=== PATIENT | female | born 1965 | race Caucasian/White ===

== ENCOUNTER → 2020-01-20 08:57 | Outpatient (CLI) | payer OTHER, SELFPAY ==
--- NOTE | ~2020-01-20 | MMUS_ITS ---
EXAMINATION: MM diagnostic ilia BI w jet, US breast RT limited HISTORY: Palpable lumps of the upper outer quadrant of the right breast TECHNIQUE: Craniocaudal, mediolateral, and mediolateral oblique 3-D tomosynthesis images of the breas ts were performed and synthetic 2-D images were generated. Spot compression views of the right breast are also obtained. CAD analysis was submitted and interpreted. High resolution limited right breast ultrasound was performed. COMPARISON: No prior mammogram is currently available for comparison BREAST PARENCHYMAL COMPOSITION: The breasts are heterogeneously dense, which may obscure small masses . FINDINGS: MAMMOGRAPHIC FINDINGS: Right breast: There are multiple obscured equal density masses in the upper outer quadrant of the manjit ast the region of the palpable abnormalities. The largest measures 1.9 cm in the posterior third of t he breast at the 12:00 location 5.1 cm deep to the nipple. Left breast: There is no evidence of suspicious mass, calcification, or architectural distortion to suggest malignancy. ULTRASOUND: There are multiple cysts in the upper outer quadrant of the right breast in the region of the palpabl e abnormality. The largest measures 1.9 cm at the 11:00 location 4.5 cm from the nipple and correspon ds to the largest mammographic mass identified. There is a 1.5 x 1.1 cm oval, parallel, hypoechoic ma ss with possible microlobulated border at the 9:00 location 6.5 cm from the nipple with posterior aco ustic enhancement and no internal vascularity at the 9:00 location 6.5 cm from the nipple. IMPRESSION: 1. Suspicious mass at the 9:00 location 6.5 cm from the nipple. 2. Ultrasound-guided biopsy is recommended. BI-RADS category 4, suspicious findings. Reviewed, dictated and finalized at location A. IMPRESSION: 1. Suspicious mass at the 9:00 location 6.5 cm from the nipple. 2. Ultrasound-guided biopsy is recommended. BI-RADS category 4, suspicious findings.
== END ==
PROVIDERS: Visit Provider Family Medicine
DX: N63.10 Unspecified lump in the right breast, unspecified quadrant (principal); R92.8 Other abnormal and inconclusive findings on diagnostic imaging of breast
CPT/HCPCS: 76642; 77062; 77066; G0279

== ENCOUNTER 2023-12-01 16:11 | Emergency (ER) | payer OTHER, SELFPAY ==
--- NOTE | 2023-12-01 16:16 | ED.ARRPALP ---
HPI - Arrhythmia/Palpitations General Chief Complaint: Arrhythmia/Palpitations Stated Complaint: ''listen to my heart Time Seen by Provider: 12/01/23 16:15 Source: patient Mode of arrival: ambulatory Limitations: no limitations History of Present Illness HPI narrative: Kelly is a 58-year-old female patient presenting to the clinic today with complaints of palpitations that she experiences at night time. She reports she also experiences when laying flat for a period of time. states she does snore at nighttime. Patient reports that these palpitations will wake her up and she will jump up and feel as though she can not breathe. States she has had a sleep study in the past and it was normal however that was prior to these episodes. Has been having these episodes for the last several months. States that she has also had a decrease in her ability to exercise-swim, hike, biking, and running as she has normally done before. Feels as though she is under some stress and feels anxious about her medical condition. Has been scheduled for a stress test/echocardiogram as well as a Holter monitor. Her pcp is out of town so she came into the clinic today as she had another episode at 0400 this morning of the palpitation-waking up in sleep not able to catch her breath. Related Data Home Medications Medication Instructions Recorded Confirmed quetiapine 50 mg tablet 25 mg PO HS 12/01/23 12/01/23 PMFSH Comments At the time of my signature, I reviewed and agree with the nursing past medical, surgical, social, and family history. There is no relevant family history pertinent to the patient complaint. Exam Narrative: General: Well-developed, well nourished, in no apparent distress Head: Normocephalic, atraumatic. Cardio: Regular rate and rhythm, s1 and s2 normal, no murmur appreciated. Resp: Clear to auscultation bilaterally, no rhonchi, rales, wheezing or rubs. Extremities: No deformity, no edema, no cyanosis, capillary refill less than 2 seconds, peripheral pulses palpable and strong. Integumentary: [place], warm, and dry, intact without lesion, no rashes. Psych: Anxious and flat mood and affect, unable to maintain eye contact while communicating Course Course Emergency Course: Portions of this record may have been created with voice recognition software. Level of Care: Express Care Visit Vital Signs Vital signs: Vital Signs Temperature 37.0 C 07/07/24 16:39 Pulse Rate 83 12/01/23 16:39 Respiratory Rate 16 12/01/23 16:39 Blood Pressure 103/78 12/01/23 16:39 Pulse Oximetry 98 12/01/23 16:39 Oxygen Delivery Room Air 12/01/23 16:39 Temperature 37.0 C 12/01/23 16:39 Pulse Rate 83 12/01/23 16:39 Respiratory Rate 16 12/01/23 16:39 Blood Pressure 103/78 12/01/23 16:39 Pulse Oximetry 98 12/01/23 16:39 Oxygen Delivery Room Air 12/01/23 16:39 Vital signs reviewed MDM - Arrhythmia/Palpitations MDM Narrative Medical decision making narrative: At the time of visit patient is resting comfortably on the exam table. Patient appears to be nontoxic. EKG: EKG shows normal sinus rhythm with heart rate of 72 beats per minute. No ST elevation, depression, or T-wave inversion noted. Repeat EKG was performed per patient request and shows no significant changes Plan: I suspect patient may have sleep apnea, palpitations, versus panic disorder. EKG reassuring in the clinic today. Supportive measures were discussed with the patient and they voiced understanding discharge instructions and agrees to treatment plan. Return precautions reviewed Differential Diagnosis Differential diagnosis: Likely palpitations, anxiety, sinus tachycardia, artial fibrillation, artial flutter, ventricular premature beats, supraventricular tachycardia, ventricular tachycardia, WPW and other (Sleep apnea, ventricular hypertrophy, congestive heart failure, congenital heart disease) ECG Data EKG #1: Attest
[2023-12-01 16:39] VITALS: BP 103/78; PULSE 83; RESP 16; TEMP 37; O2SAT 98
--- NOTE | 2023-12-01 16:44 | ECG_ITS ---
Test Date: 2023-12-01 16:38:44 Measurements Intervals [place] Rate: 72 P: 68 NC: 164 QRS: 31 QRSD: 84 T: 52 QT: 385 QTc: 424 Interpretive Statements SINUS RHYTHM POSSIBLE LEFT ATRIAL ENLARGEMENT RSR' IN V1 OR V2, RIGHT VCD OR RVH LOW QRS VOLTAGE IN PRECORDIAL LEADS BORDERLINE ECG No previous ECG available for comparison Electronically Signed On 12-01-2023 20:45:51 CDT by Ernesto Ware D.O.
--- NOTE | 2023-12-01 16:52 | ECG_ITS ---
Test Date: 2023-12-01 17:19:54 Measurements Intervals [place] Rate: 66 P: 73 MS: 172 QRS: 62 QRSD: 85 T: 65 QT: 407 QTc: 427 Interpretive Statements SINUS RHYTHM POSSIBLE LEFT ATRIAL ENLARGEMENT RSR' IN V1 OR V2, PROBABLY NORMAL VARIANT LOW QRS VOLTAGE IN PRECORDIAL LEADS BORDERLINE ECG Compared to ECG 12/01/2023 16:38:44 NO SIGNIFICANT CHANGE Electronically Signed On 12-02-2023 15:26:24 CDT by Ernesto Ware D.O.
== END 2023-12-01 17:35 | disposition home or self-care (01) ==
PROVIDERS: Emergency Provider Nurse Practitioner Family; PCP Family Medicine
DX: F41.9 Anxiety disorder, unspecified (principal); R00.2 Palpitations; R06.83 Snoring; F32.A Depression, unspecified
CPT/HCPCS: 93005; 99203; G0463

== ENCOUNTER 2023-12-13 11:04 | Outpatient (CLI) | payer OTHER, SELFPAY ==
--- NOTE | 2023-12-17 15:55 | WPDHOLTEREM ---
Holter/Event Monitor Holter/Event Monitor Date of procedure: 12/17/23 Holter/Event Procedure: 48 Hr Holter Monitor Diagnosis: Palpitations Indications: Palpitations Image/Tracing Quality: Adequate. Total analysis time of 47 hours and 59 minutes. Findin. Predominant rhythm is sinus rhythm with an average heart rate of 71 beats per minute. The minimum heart rate is 46 beats per minute. The maximum heart rate is 118 beats per minute. 2. No evidence of atrial fibrillation, SVT, significant pauses, heart block, or ventricular tachycardia. 3. PAC burden is <0.1%. Possible blocked PACs with nonsignificant pauses noted during sleeping hours. 4. No PVCs. 5. Patient reported two events of heart pounding which correlate to normal sinus rhythm without any arrhythmias with a heart rate range of 61-65 beats per minute.
== END 2023-12-13 11:05 | disposition home or self-care (01) ==
LOC: ANHCARD 11:06
PROVIDERS: PCP Family Medicine; Visit Provider Family Medicine
DX: R00.2 Palpitations (principal)
CPT/HCPCS: 93225; 93226

== ENCOUNTER 2024-01-09 08:39 | Outpatient (CLI) | payer OTHER, SELFPAY ==
--- NOTE | 2024-01-09 | EST_ITS ---
Patient Info Name: Kelly Gao Age: 58 years : 1965 Gender: Female Ht: 66 in Wt: 127 lbs BSA: 1.63 m2 Technical Quality: Good Exam Date: 01/09/2024 9:03 AM Exam Location: Echo Lab Patient Status: Outpatient Admit Date: 01/09/2024 Staff Ordering Physician: Eric, Mitch ESPINOSA Bottom Man: Ligia Mg RDCS Attending Provider: Eric, Mitch ESPINOSA Exercise Technologist: Gemma Nuñez CT Exercise Physician: Ernesto Ware DO Exam Type: CA stress echo Study Info Indications R00.2 - Palpitations Treadmill exercise stress echocardiogram is performed. Summary 1. 1. Negative [place] exercise stress test for ischemic ST changes by ECG criteria. 2. 2. Good functional capacity, achieving 10 METs of workload. 3. 3. Appropriate HR response to exercise. 4. 4. Appropriate HR recovery at 1 minute post exercise. 5. 5. Negative stress echocardiogram for ischemia by wall motion analysis. 6. 6. Patient informed of the above results. Stress Echo Findings Left Ventricle Appropriate increase in LV endocardial thickening with systole. Appropriate augmentation of contractility with systole. No wall motion abnormality. Left Ventricle Normal LV systolic function, no wall motion abnormality. Protocol: [place] Stress ECG Details Stage: REST Duration (min): 3 min : 2 sec Speed (mph): 0.0 Grade (%): 0 HR (bpm): 63 SBP (mmHg): 103 DBP (mmHg): 75 METS: --- Stage: REST Duration (min): 18 min : 35 sec Speed (mph): 0.0 Grade (%): 0 HR (bpm): 68 SBP (mmHg): 103 DBP (mmHg): 75 METS: --- Stage: STAGE 1 Duration (min): 1 min : 0 sec Speed (mph): 1.7 Grade (%): 10 HR (bpm): 100 SBP (mmHg): 103 DBP (mmHg): 75 METS: --- Stage: STAGE 1 Duration (min): 2 min : 0 sec Speed (mph): 1.7 Grade (%): 10 HR (bpm): 99 SBP (mmHg): 103 DBP (mmHg): 75 METS: --- Stage: STAGE 1 Duration (min): 3 min : 0 sec Speed (mph): 1.7 Grade (%): 10 HR (bpm): 97 SBP (mmHg): 125 DBP (mmHg): 70 METS: --- Stage: STAGE 2 Duration (min): 1 min : 0 sec Speed (mph): 2.5 Grade (%): 12 HR (bpm): 105 SBP (mmHg): 125 DBP (mmHg): 70 METS: --- Stage: STAGE 2 Duration (min): 2 min : 0 sec Speed (mph): 2.5 Grade (%): 12 HR (bpm): 102 SBP (mmHg): 126 DBP (mmHg): 61 METS: --- Stage: STAGE 2 Duration (min): 3 min : 0 sec Speed (mph): 2.5 Grade (%): 12 HR (bpm): 102 SBP (mmHg): 126 DBP (mmHg): 61 METS: --- Stage: STAGE 3 Duration (min): 1 min : 0 sec Speed (mph): 3.4 Grade (%): 14 HR (bpm): 123 SBP (mmHg): 130 DBP (mmHg): 68 METS: --- Stage: STAGE 3 Duration (min): 2 min : 0 sec Speed (mph): 3.4 Grade (%): 14 HR (bpm): 132 SBP (mmHg): 130 DBP (mmHg): 68 METS: --- Stage: STAGE 3 Duration (min): 2 min : 34 sec Speed (mph): 0.0 Grade (%): 0 HR (bpm): 137 SBP (mmHg): 136 DBP (mmHg): 69 METS: --- Stage: RECOVERY Duration (min): 0 min : 25 sec Speed (mph
== END 2024-01-09 08:40 | disposition home or self-care (01) ==
LOC: ANHCARD 08:39
PROVIDERS: PCP Family Medicine; Visit Provider Family Medicine
DX: R00.2 Palpitations (principal)
CPT/HCPCS: 93351

== ENCOUNTER 2024-03-23 14:35 | Outpatient (CLI) | payer OTHER, SELFPAY ==
[2024-03-23 15:06] LABS: Basophils Percent Auto 0.5 % (0.2-1.2); Eosinophils Absolute Auto 0.1 K/mm3 (0-0.3); Eosinophils Percent Auto 1.8 % (0-4.4); Hematocrit 38.9 % (37.0-47.0); Hemoglobin 13.5 g/dL (12.0-15.0); Immature Granulocyte Absolute 0.02 K/mm3 (0.00-0.031); Immature Granulocyte Percent A 0.3 % (0-0.5); Lymphocytes Absolute Auto 2.04 K/mm3 (0.9-3.2); Lymphocytes Percent Auto 32.9 % (18.3-44.2); Mean Corpuscular HGB Conc 34.7 g/dl (32-36); Mean Corpuscular Hemoglobin 33.6 pg (26-34); Mean Corpuscular Volume 96.8 fl (80-100); Mean Platelet Volume 9.5 fl (7.4-10.4); Monocytes Absolute Auto 0.4 K/mm3 (0.1-0.6); Monocytes Percent Auto 6.5 % (2.6-8.5); Neutrophils Absolute Auto 3.6 K/mm3 (1.3-6.7); Platelet Count Result 209 k/mm3 (150-375); Red Blood Count 4.02 M/mm3 (4.2-5.4); Red Cell Distribution Width 12.4 % (11.5-14.5); White Blood Count 6.2 K/mm3 (4.5-10.0)
[2024-03-23 15:18] LABS: Alanine Aminotransferase 21 U/L (6-35); Albumin Level 4.5 g/dL (3.5-5.1); Alkaline Phosphatase 98 U/L (38-126); Anion Gap 7 mmol/L (4-12); Aspartate Amino Transferase 26 U/L (14-36); Bilirubin,Total 0.3 mg/dL (0.2-1.3); Blood Urea Nitrogen 16 mg/dL (7-17); Calcium 9.1 mg/dL (8.4-10.2); Carbon Dioxide 29 mmol/L (22-30); Chloride 101 mmol/L (98-107); Cholesterol 200 mg/dL (0-200); Estimated Glomerular Filt Rate > 60; Glucose 94 mg/dL (65-110); HDL Direct 77 mg/dL; Potassium 3.8 mmol/L (3.4-5.0); Sodium 137 mmol/L (137-145); Triglycerides 87 mg/dL (<150)
[2024-03-23 15:31] LABS: Hemoglobin A1C 5.5 % (<5.7)
[2024-03-23 15:32] LABS: LDL Cholesterol Direct 97 mg/dL
[2024-03-23 15:33] LABS: Iron 97 ug/dL (37-170)
[2024-03-23 15:42] LABS: Percent Iron Saturation 28 % (20-50)
[2024-03-23 15:48] LABS: Thyroid Stimulating Hormone 0.529 uIU/mL (0.465-4.680)
[2024-03-23 15:52] LABS: Free T4 Free Thyroxine 0.95 ng/mL (0.78-2.19)
[2024-03-24 08:28] LABS: Triiodothyronine T3 Free 3.3 pg/mL (2.3-4.2)
== END 2024-03-23 14:36 | disposition home or self-care (01) ==
LOC: ANHLAB 14:39
PROVIDERS: PCP Family Medicine; Visit Provider Family Medicine
DX: Z00.00 Encounter for general adult medical examination without abnormal findings (principal); R53.83 Other fatigue
CPT/HCPCS: 36415; 80053; 80061; 82728; 83036; 83540; 83550; 84439; 84443; 84481; 85025